=== PATIENT | male | born 1985 | race Caucasian/White ===

== ENCOUNTER 2022-06-07 16:04 | Emergency (ER) | payer SELFPAY ==
[2022-06-07] VITALS (32 sets, daily range): BP systolic 134–168; BP diastolic 73–105; PULSE 72–92; RESP 13–25; TEMP 36.6; O2SAT 95–98; BMI 38.7
--- NOTE | 2022-06-07 16:07 | DI.CT.S_ITS ---
PROCEDURE: CT STROKE INDICATIONS: left side weakness TECHNIQUE: Noncontrast 4.5 mm thick angled axial sections acquired from the foramen magnum to the vertex, with coronal reformats. For radiation dose reduction, the following was used: automated exposure control, adjustment of mA and/or kV according to patient size. COMPARISON: None. FINDINGS: Image quality: Excellent. CSF spaces: Basal cisterns are patent. No extra-axial fluid collections. Ventricles are normal in size and shape. Brain: No midline shift. No intracranial masses or hemorrhage. More-white matter interface is normal. Skull and face: Calvarium and visualized facial bones are intact, without suspicious lesions. Sinuses: Visualized sinuses and mastoids are clear. IMPRESSION: No acute intracranial finding. Results or discussed with Dr. Ken Wagner at 1614 on 06/07/2020. This study fulfills neurological imaging criteria for inclusion or exclusion of acute stroke therapies based on available published neurological imaging guidelines. Dictated by: Gunnar Gerard M.D. on 06/07/2022 at 16:16 Approved by: Gunnar Gerard M.D. on 06/07/2022 at 16:19
--- NOTE | 2022-06-07 16:07 | DI.CT.S_ITS ---
PROCEDURE: CT ANGIO HEAD AND NECK INDICATIONS: left side weakness TECHNIQUE: Noncontrast images were performed earlier in the day and not repeated. After the administration of intravenous contrast, 1 mm thick sections acquired from the aortic arch through the [place] of [place]. Post-contrast 4.5 mm thick sections then re-acquired from the foramen magnum to the vertex. 3-dimensional hdplibs-qpmncgypg-ujtlabibpg (MIP) and/or volume rendering reformats were acquired of the central intracranial vasculature and neck separately. For radiation dose reduction, the following was used: automated exposure control, adjustment of mA and/or kV according to patient size. COMPARISON: [facility], CT, CT STROKE, 06/07/2022, 16:14. FINDINGS: Image quality: Limited by bolus timing, with venous contamination. Poor skin at BRAIN: CSF spaces: Ventricles are normal in size and shape. Basal cisterns are patent. No extra-axial fluid collections. Brain: No midline shift. No intracranial bleeds or masses. More-white matter interface appears intact. Skull and face: Calvarium and facial bones appear intact, without suspicious lesions. Orbits appear normal. Sinuses: Sinuses and mastoids are clear. HEAD CT ANGIOGRAPHY: Anterior circulation: Intracranial internal carotid arteries are normal in size and flow. The flow within the paired anterior cerebral arteries is normal and symmetric. The flow within the middle cerebral arteries is normal and symmetric. The anterior communicating artery is seen. No aneurysms are seen. Posterior circulation: Visualized portions of the vertebral arteries demonstrate normal caliber, and join to form a normal appearing basilar artery. Flow within the posterior cerebral arteries is normal and symmetric. No aneurysms are seen. NECK CT ANGIOGRAPHY: Carotid system: The great vessels demonstrate a conventional anatomy as they arise from the aortic arch. The origins of the common carotid arteries appear patent. The common carotid arteries demonstrate normal caliber and courses. The bifurcation regions are both widely patent. The internal carotid arteries demonstrate normal calibers and courses. Posterior circulation: The origins of the vertebral arteries both appear widely patent. The more superior extracranial portions of both vertebral arteries also demonstrate normal courses and calibers. They join to form a normal appearing basilar artery. Soft tissues: Visualized neck soft tissues demonstrate no suspicious abnormalities. Bones: No suspicious bony lesions. Visualized cervical spine appears normally aligned. Partially bridging anterior osteophytes are seen at C6-C7. IMPRESSION: No significant intracranial arterial abnormality is seen. Within the arteries of the neck, no hemodynamically significant stenosis can be seen. No findings of dissection are seen. If there is strong clinical suspicion for an acute stroke, please consider a brain MRI for further evaluation, as it is more sensitive (assuming that there is no contraindication to MRI). Any quantitative measurements of stenosis were performed using NASCET criteria. Dictated by: Ron Roberts M.D. on 06/07/2022 at 16:41 Approved by: Ron Roberts M.D. on 06/07/2022 at 16:44
--- NOTE | 2022-06-07 16:08 | ED_ITS ---
HPI - Neuro Symptoms/Deficit General Chief Complaint: Neuro Symptoms/Deficit Stated Complaint: Stroke Time Seen by Provider: 06/07/22 16:06 History of Present Illness HPI Narrative: Code stroke activated 4 p.m.. Last well known 3:50 p.m.. 10 minutes prior to arrival. Patient with . noticed unable to speak and unable to walk. Has slurred speech left facial droop and left-sided weakness. No prior history of heart attack strokes or diabetes. No recent illness. Fast exam positive for facial droop slurred speech and left-sided weakness. Patient on way to CT scan now. Related Data Allergies Allergy/AdvReac Type Severity Reaction Status Date / Time No Known Drug Allergies Allergy Verified 06/07/22 16:09 Review of Systems Review of Systems Narrative: GENERAL: Denies chills, fatigue, malaise, fever, sweats. HEENT: Denies sinus pain, ear pain, sore throat RESPIRATORY: Denies dyspnea, cough CARDIOVASCULAR: Denies chest pain, palpitations GASTROINTESTINAL: Denies nausea, vomiting, abdominal pain : Denies dysuria, frequency, hematuria MUSCULOSKELETAL: denies muscle or bony pain SKIN: Denies rash, skin lesions NEUROLOGIC: Positive weakness, numbness/facial droop/slurred speech ROS Unobtainable: All systems reviewed & are unremarkable except as noted in HPI and below Patient History Social History Smoking Status: Current every day smoker Exam Narrative Exam Narrative: GENERAL: in no distress, not toxic not dyspneic HEAD: Normocephalic. EYES: Pupils equal round No scleral icterus. ENT: Mucous membranes moist. NECK: Trachea midline. CARDIOVASCULAR: Regular rate and rhythm without murmurs RESPIRATORY: Clear to auscultation. Breath sounds equal bilaterally. No wheezes, rales, or rhonchi. GASTROINTESTINAL: Abdomen soft, non-tender EXTREMITIES: No gross deformities. BACK: No flank tenderness. NEURO: AOx4. On examination there is slurred speech and left facial droop with preservation of the forehead. Weakness on the left upper extremity able to lift arm off the bed. Unable to fur nailer with left hand. Left leg off the bed but quickly drops down SKIN: Warm and dry PSYCH: is anxious, is cooperative Initial Vital Signs Initial Vital Signs: Vital Signs Temperature 98 F 06/07/22 16:06 Pulse Rate 88 06/07/22 16:06 Respiratory Rate 18 06/07/22 16:06 Blood Pressure 163/95 H 06/07/22 16:06 Pulse Oximetry 96 06/07/22 16:06 Oxygen Delivery Method 06/07/22 16:06 Scores NIH Stroke Scale Level of Conciousness: Alert, keenly responsive Ask month/age: Answers both questions correctly. Open/close eyes, close hand: Performs both tasks correctly Best gaze horizontal: Normal Visual palacios: No visual loss Facial palsy: Minor paralysis, flattened nasolabial fold, asymmetry on smiling Left arm drift: No movement Right arm drift: No drift for full 10 sec Left leg drift: Some effort against gravity, cannot maintain, drifts down to bed Right leg drift: No drift for full 5 sec Limb ataxia: Present in one limb Sensory on face/arms/legs: Mild to moderate sensory loss, can tell touch Best language: Mild to moderate, slurs some words Dysarthria: Mild to mod,some slurring Extinction or inattention: Visual, tactile, auditory, spacial or personal inattention to stimuli Total NIH Stroke scale score: 12 Course Course Course Narrative: 4:19 p.m.. Spoke with radiologist, CT brain without contrast no acute process, no bleed Decision to Admit Date: 06/07/22 Decision to Admit time: 16:12 Orders Ordered: Discontinued Medications Alteplase, Recombinant (Activase) 9 mg in 9 mls @ 540 mls/hr IV NOW ONE Stop: 06/07/22 16:38 Last Infusion: 06/07/22 16:41 Dose: 0 mls/hr Documented By: Admin: 06/07/22 16:39 Dose: 540 mls/hr Documented By: IFRAH Alteplase, Recombinant (Activase) 81 mg in 81 mls @ 81 mls/hr IV NOW ONE Stop: 06/07/22 17:36 Last Infusion: 06/07/22 17:38 Dose: 0 mls/hr Documented By: Admin: 06/07/22 16:41 Dose: 81 mls/hr Documented By: IFRAH Reevaluation(s) Reevaluation #1: Spoke with patient and regarding risks and benefits of tPA. At this time CT scan of the head shows no signs of bleed but patient is symptomatic. They do agree with tPA, risk of /bleed anywhere in the body as well as brain/worsening symptoms reviewed with them benefits of reversing symptoms reviewed with them as well. They do desire having tPA Reevaluation #2: Patient did receive tPA. Is improving with left arm movement and able to raise his arm and very soft fur nailer. Improved with left leg raise as well. Time: 16:52 Reevaluation #3: Symptoms have nearly resolved. Strong left fur nailer and able to raise his left arm. No facial droop. No leg weakness. Time: 17:56 Consultations Consultation #1: Spoke with [facility] tele stroke, agree with giving tPA. Spoke w tory Baker, she will teleconference in robotically Time: 16:28 Consultation #2: Spoke with Dr. Baker, she would like to transfer patient down to [facility]. She will work on getting patient transferred. In the meantime, patient will be going back to CT scan for angiogram, she will look for the results online. Time: 16:56 Consultation #3: Spoke with Dr. Baker, she would like patient to be transferred to [facility] Emergency Department, she will give report to the ER attending Time: 17:56 Vital Signs Vital signs: Vital Signs - 8 hr 06/07/22 16:06 06/07/22 16:22 06/07/22 16:26 Temperature 98 F Pulse Rate 88 83 82 Respiratory Rate 18 17 17 Blood Pressure 163/95 H Pulse Oximetry 96 98 97 Oxygen Delivery Method Room Air 06/07/22 16:27 06/07/22 16:27 06/07/22 16:30 Temperature Pulse Rate 82 86 Respiratory Rate 20 25 H Blood Pressure 168/81 H Pulse Oximetry 98 98 Oxygen Delivery Method 06/07/22 16:35 06/07/22 16:35 06/07/22 16:40 Temperature Pulse Rate 80 Respiratory Rate 21 Blood Pressure 163/86 H 160/85 H Pulse Oximetry 97 Oxygen Delivery Method 06/07/22 16:40 06/07/22 16:45 06/07/22 16:45 Temperature Pulse Rate 82 79 Respiratory Rate 19 19 Blood Pressure 152/85 H Pulse Oximetry 98 97 Oxygen Delivery Method 06/07/22 16:50 06/07/22 16:50 06/07/22 16:55 Temperature Pulse Rate 82 Respiratory Rate 20 Blood Pressure 157/91 H 140/84 Pulse Oximetry 97 Oxygen Delivery Method 06/07/22 16:55 06/07/22 17:00 06/07/22 17:00 Temperature Pulse Rate 78 77 Respiratory Rate 21 14 Blood Pressure 139/84 Pulse Oximetry 97 96 Oxygen Delivery Method 06/07/22 17:05 06/07/22 17:05 06/07/22 17:07 Temperature Pulse Rate 77 Respiratory Rate 17 Blood Pressure 146/88 H 157/105 H Pulse Oximetry 96 Oxygen Delivery Method 06/07/22 17:07 06/07/22 17:08 06/07/22 17:08 Temperature Pulse Rate 78 77 Respiratory Rate 19 14 Blood Pressure 145/85 H Pulse Oximetry 96 96 Oxygen Delivery Method 06/07/22 17:10 06/07/22 17:10 06/07/22 17:15 Temperature Pulse Rate 76 Respiratory Rate 15 Blood Pressure 138/89 134/85 Pulse Oximetry 96 Oxygen Delivery Method 06/07/22 17:15 06/07/22 17:20 06/07/22 17:20 Temperature Pulse Rate 78 92 H Respiratory Rate 20 18 Blood Pressure 144/85 H Pulse Oximetry 97 97 Oxygen Delivery Method 06/07/22 17:24 06/07/22 17:24 06/07/22 17:25 Temperature Pulse Rate 78 Respiratory Rate 14 Blood Pressure 145/91 H 137/90 Pulse Oximetry 96 Oxygen Delivery Method 06/07/22 17:25 06/07/22 17:30 06/07/22 17:30 Temperature Pulse Rate 79 75 Respiratory Rate 13 16 Blood Pressure 145/96 H Pulse Oximetry 96 95 Oxygen Delivery Method 06/07/22 17:35 06/07/22 17:35 06/07/22 17:50 Temperature Pulse Rate 78 81 Respiratory Rate 21 16 Blood Pressure 136/84 143/76 H Pulse Oximetry 96 98 Oxygen Delivery Method 06/07/22 17:40 06/07/22 17:40 06/07/22 17:45 Temperature Pulse Rate 79 Respiratory Rate 20 Blood Pressure 145/86 H 159/87 H Pulse Oximetry 96 Oxygen Delivery Method 06/07/22 17:45 Temperature Pulse Rate 77 Respiratory Rate 16 Blood Pressure Pulse Oximetry 96 Oxygen Delivery Method MDM - Neuro Symptoms/Deficit Differential Diagnosis Differential diagnosis: Likely cerebrovascular accident and transient cerebral ischemia Lab Data Result diagrams: 06/07/22 16:20 06/07/22 16:20 Labs: Lab Results 06/07/22 06/07/22 06/07/22 Range/Units 16:20 16:20 16:20 WBC 11.9 H (4.5-11.0) X10^3/uL RBC 4.60 (4.5-5.9) X10^6/uL Hgb 14.0 (13.5-17.5) g/dL Hct 41.0 (41-53) % MCV 89.2 (80-100) fL MCH 30.4 (26-34) PG MCHC 34.1 (30-36) % RDW 13.6 (11.6-14.8) % Plt Count 291 (150-400) X10^3/uL Neut % (Auto) 50.8 (50-75) % Lymph % (Auto) 34.5 (25-40) % [place] % (Auto) 9.4 (3-14) % Eos % (Auto) 3.8 (2-4) % Baso % (Auto) 1.5 (0-2) % Neut # (Auto) 6000 (1663-5331) /uL Lymph # (Auto) 4100 (4767-1151) /uL [place] # (Auto) 1100 H (0-900) /uL Eos # (Auto) 500 H (0-450) /uL Baso # (Auto) 200 H (0-100) /uL PT 10.9 (10.1-12.7) SECONDS INR 1.0 (0.9-1.3) APTT 30 (26-36) SECONDS Sodium 139 (137-145) mmol/L Potassium 4.2 (3.4-5.1) mmol/L Chloride 102 (98-107) mmol/L Carbon Dioxide 28 (22-32) mmol/L BUN 16 (9-20) mg/dL Creatinine 0.77 (0.66-1.25) mg/dL Estimated GFR > 60 (>60) mL/min BUN/Creatinine Ratio 20.8 (6-22) Glucose 109 H (70-100) mg/dL Calcium 8.9 (8.4-10.2) mg/dL Total Bilirubin 0.2 (0.2-1.3) mg/dL AST 31 (17-59) IU/L ALT 31 (<50) IU/L Alkaline Phosphatase 69 (38-126) U/L Total Creatine Kinase 225 H (55-170) U/L CK-MB (CK-2) 0.82 (<2.37) ng/mL CK-MB (CK-2) Rel Index 0.4 L (1.5-5.0) % Troponin I < 0.012 (0.01-0.034) ng/mL Total Protein 7.6 (6.3-8.2) g/dL Albumin 4.1 (3.5-5.0) g/dL Globulin 3.5 (1.7-4.1) g/dL Albumin/Globulin Ratio 1.2 (1.0-2.8) SARS-CoV-2 (PCR) (Negative) 06/07/22 Range/Units 17:40 WBC (4.5-11.0) X10^3/uL RBC (4.5-5.9) X10^6/uL Hgb (13.5-17.5) g/dL Hct (41-53) % MCV (80-100) fL MCH (26-34) PG MCHC (30-36) % RDW (11.6-14.8) % Plt Count (150-400) X10^3/uL Neut % (Auto) (50-75) % Lymph % (Auto) (25-40) % [place] % (Auto) (3-14) % Eos % (Auto) (2-4) % Baso % (Auto) (0-2) % Neut # (Auto) (1304-7089) /uL Lymph # (Auto) (2739-2096) /uL [place] # (Auto) (0-900) /uL Eos # (Auto) (0-450) /uL Baso # (Auto) (0-100) /uL PT (10.1-12.7) SECONDS INR (0.9-1.3) APTT (26-36) SECONDS Sodium (137-145) mmol/L Potassium (3.4-5.1) mmol/L Chloride (98-107) mmol/L Carbon Dioxide (22-32) mmol/L BUN (9-20) mg/dL Creatinine (0.66-1.25) mg/dL Estimated GFR (>60) mL/min BUN/Creatinine Ratio (6-22) Glucose (70-100) mg/dL Calcium (8.4-10.2) mg/dL Total Bilirubin (0.2-1.3) mg/dL AST (17-59) IU/L ALT (<50) IU/L Alkaline Phosphatase (38-126) U/L Total Creatine Kinase (55-170) U/L CK-MB (CK-2) (<2.37) ng/mL CK-MB (CK-2) Rel Index (1.5-5.0) % Troponin I (0.01-0.034) ng/mL Total Protein (6.3-8.2) g/dL Albumin (3.5-5.0) g/dL Globulin (1.7-4.1) g/dL Albumin/Globulin Ratio (1.0-2.8) SARS-CoV-2 (PCR) Negative (Negative) Point of Care Testing Glucose POC [address] scan - head: Radiologist's Impression: [address] [address] [address] Scan Report Signed Patient: Santiago Gamble MR#: [id number] : 1985 Acct:[id number] Age/Sex: 37 / M Date of Service: 06/07/22 Loc: ED Accession Number: [id number] ?? Procedure: CT Stroke Ordering Provider: Ken Wagner MD PROCEDURE:? CT STROKE ? INDICATIONS:? left side weakness ? TECHNIQUE:? Noncontrast 4.5 mm thick angled axial sections acquired from the foramen magnum to the vertex, with coronal reformats.? For radiation dose reduction, the following was used:? automated exposure control, adjustment of mA and/or kV according to patient size.? ? COMPARISON:? None. ? FINDINGS:? Image quality:? Excellent.? ? CSF spaces:? Basal cisterns are patent.? No extra-axial fluid collections.? Scot tricles are normal in size and shape.? ? Brain:? No midline shift.? No intracranial masses or hemorrhage.? More-white matter interface is normal.? ? Skull and face:? Calvarium and visualized facial bones are intact, without suspicious lesions.? ? Sinuses:? Visualized sinuses and mastoids are clear.? ? IMPRESSION:? No acute intracranial finding.? Results or discussed with Dr. Ken Wagner at 1614 on 06/07/2020. ? This study fulfills neurological imaging criteria for inclusion or exclusion of acute stroke therapies based on available published neurological imaging guidelines.? ? ? Dictated by: Gunnar Gerard M.D. on 06/07/2022 at 16:16 ? ? Approved by: Gunnar Gerard M.D. on 06/07/2022 at 16:19 ? CTA - brain/neck: Radiologist's Impression: [address] [address] [address] Scan Report Signed Patient: Santiago Gamble MR#: [id number] : 1985 Acct:[id number] Age/Sex: 37 / M Date of Service: 06/07/22 Loc: ED Accession Number: [id number] ?? Procedure: CT angio head and neck Ordering Provider: Ken Wagner MD PROCEDURE:? CT ANGIO HEAD AND NECK ? INDICATIONS:? left side weakness ? TECHNIQUE:? Noncontrast images were performed earlier in the day and not repeated.? ? After the administration of intravenous contrast, 1 mm thick sections acquired from the aortic arch through the [place] of [place].? Post-contrast 4.5 mm thick sections then re- acquired from the foramen magnum to the vertex.? 3-dimensional vxfrabd-wssurjbsf-aiknuxydae (MIP) and/or volume rendering reformats were acquired of the central intracranial vasculature and neck separately. For radiation dose reduction, the following was used:? automated exposure control, adjustment of mA and/or kV according to patient size.? ? COMPARISON:? [facility], CT, CT STROKE, 06/07/2022, 16:14. ? FINDINGS:? Image quality:? Limited by bolus timing, with venous contamination.? Poor skin at ? BRAIN:? CSF spaces:? Ventricles are normal in size and shape.? Basal cisterns are patent.? No extra-axial fluid collections.? ? Brain:? No midline shift.? No intracranial bleeds or masses.? More-white matter interface appears intact.? ? Skull and face:? Calvarium and facial bones appear intact, without suspicious lesions.? Orbits appear normal.? ? Sinuses:? Sinuses and mastoids are clear.? ? HEAD CT ANGIOGRAPHY:? Anterior circulation:? Intracranial internal carotid arteries are normal in size and flow.? The flow within the paired anterior cerebral arteries is normal and symmetric.? The flow within the middle cerebral arteries is normal and symmetric.? The anterior communicating artery is seen.? No aneurysms are seen.? ? Posterior circulation:? Visualized portions of the vertebral arteries demonstrate normal caliber, and join to form a normal appearing basilar artery.? Flow within the posterior cerebral arteries is normal and symmetric.? No aneurysms are seen.? ? NECK CT ANGIOGRAPHY:? Carotid system:? The great vessels demonstrate a conventional anatomy as they arise from the aortic arch.? The origins of the common carotid arteries appear patent.? The common carotid arteries demonstrate normal caliber and courses.? The bifurcation regions are both widely patent.? The internal carotid arteries demonstrate normal calibers and courses.? ? Posterior circulation:? The origins of the vertebral arteries both appear widely patent.? The more superior extracranial portions of both vertebral arteries also demonstrate normal courses and calibers.? They join to form a normal appearing basilar artery.? ? Soft tissues:? Visualized neck soft tissues demonstrate no suspicious abnormalities.? ? Bones:? No suspicious bony lesions.? Visualized cervical spine appears normally aligned.? Partially bridging anterior osteophytes are seen at C6-C7. ? ? ? IMPRESSION:? No significant intracranial arterial abnormality is seen.? ? Within the arteries of the neck, no hemodynamically significant stenosis can be seen. ? No findings of dissection are seen. ? If there is strong clinical suspicion for an acute stroke, please consider a bra in MRI for further evaluation, as it is more sensitive (assuming that there is no contraindication to MRI). ? Any quantitative measurements of stenosis were performed using NASCET criteria.? ? ? Dictated by: Ron Roberts M.D. on 06/07/2022 at 16:41 ? ? Approved by: Ron Roberts M.D. on 06/07/2022 at 16:44 ? ECG Data Interpretation: Normal sinus rhythm rate [address] elevation or depression MDM Narrative Medical decision making narrative: Appropriate for transfer, patient will need ICU and neurology services. We do not have neurology services here. Critical Care Time Critical Care Time Attestation: Critical Care Time 35 minutes: Critical care time is separate from other billable procedures. This critical care time includes consultation with family and other consulting doctors, review of records, and interpretation of data from labs, EKGs, imaging, etc. Discharge Plan Departure Patient Disposition: [facility] Clinical Impression: Cerebrovascular accident
--- NOTE | 2022-06-07 16:30 | PC.NURSE ---
telestroke neurologist on with patient completing exam @ 1630 tpa consent completed @ 1638 tpa bolus dose 9 mg @ 1639 tpa infusion 81 mg over 1 hr @1640 tpa infusion completed @ 1748
--- NOTE | 2022-06-07 16:34 | RT ---
Responded to code stroke, airway patent and no distress noted. Pt on room air
[2022-06-07 16:35] LABS: Add Manual Diff / Slide Review NO; Basophils Absolute Auto 200 /uL (0-100); Basophils Percent Auto 1.5 % (0-2); Eosinophils Absolute Auto 500 /uL (0-450); Eosinophils Percent Auto 3.8 % (2-4); Lymphocytes Absolute Auto 4100 /uL (1100-4500); Lymphocytes Percent Auto 34.5 % (25-40); Mean Corpuscular HGB Conc 34.1 % (30-36); Mean Corpuscular Hemoglobin 30.4 PG (26-34); Mean Corpuscular Volume 89.2 fL (80-100); Monocytes Absolute Auto 1100 /uL (0-900); Monocytes Percent Auto 9.4 % (3-14); Neutrophils Absolute Auto 6000 /uL (1500-7000); Neutrophils Percent Auto 50.8 % (50-75); Platelet Count 291 X10^3/uL (150-400); Prothrombin Time 10.9 SECONDS (10.1-12.7); Red Cell Distribution Width 13.6 % (11.6-14.8); White Blood Cell Count 11.9 X10^3/uL (4.5-11.0)
[2022-06-07 16:38] LABS: PTT Partial Thromboplastin Tim 30 SECONDS (26-36)
[2022-06-07] MEDS: ALTEPLASE 9 MG/9 ML VIAL 540 MG IV (16:39)
[2022-06-07 16:41] LABS: Alanine Aminotransferase 31 IU/L (<50); Albumin 4.1 g/dL (3.5-5.0); Albumin Globulin Ratio 1.2 (1.0-2.8); Alkaline Phosphatase 69 U/L (38-126); Aspartate Aminotransferase 31 IU/L (17-59); BUN Creatinine Ratio 20.8 (6-22); Bilirubin Total 0.2 mg/dL (0.2-1.3); Blood Urea Nitrogen 16 mg/dL (9-20); Calcium 8.9 mg/dL (8.4-10.2); Carbon Dioxide 28 mmol/L (22-32); Chloride 102 mmol/L (98-107); Creatine Kinase 225 U/L (55-170); Estimated Glomerular Filt Rate > 60 mL/min (>60); Globulin 3.5 g/dL (1.7-4.1); Glucose 109 mg/dL (70-100); HEMOLYSIS < 15 (0-50); Potassium 4.2 mmol/L (3.4-5.1); Sodium 139 mmol/L (137-145); Total Protein 7.6 g/dL (6.3-8.2)
[2022-06-07] MEDS: ALTEPLASE 81 MG/81 ML VIAL IV (16:41)
[2022-06-07 16:53] LABS: Troponin I < 0.012 ng/mL (0.01-0.034)
[2022-06-07 16:57] LABS: CKMB % Relative Index 0.4 % (1.5-5.0); Creatine Kinase MB 0.82 ng/mL (<2.37)
--- NOTE | 2022-06-07 17:00 | PC.NURSE ---
decreased sensation of touch left face/arms/leg
[2022-06-07 18:02] LABS: COVID19 -Nasal RAPID Negative (Negative)
--- NOTE | 2022-06-07 18:04 | PC.NURSE ---
left hand 4th and 5th finger and outer part of left eyelid/corner of eye/cheek tingling/numb but sense of touch equal both sides
== END 2022-06-07 19:13 | disposition short-term general hospital (02) ==
PROVIDERS: Emergency Provider Emergency Medicine
DX: I63.9 Cerebral infarction, unspecified (principal); Z20.822 Contact with and (suspected) exposure to COVID-19
CPT/HCPCS: 36415; 70450; 70496; 70498; 80053; 82550; 82553; 82962; 84484; 85025; 85610; 85730; 87635; 93005; 96365; 99285; 99291; C9803; Q3014; J2997; Q9967

== ENCOUNTER → 2022-06-20 09:37 | Outpatient (CLI) | payer SELFPAY ==
[2022-06-20 10:57] LABS: Cholesterol 274 mg/dL (140-199); HDL Cholesterol 38 mg/dL (40-60); LDL Cholesterol Calculated 184 mg/dL (<100); Triglycerides 259 mg/dL (35-150)
== END ==
PROVIDERS: PCP Family Medicine; Referring Provider Family Medicine; Visit Provider Family Medicine
DX: I63.9 Cerebral infarction, unspecified (principal)
CPT/HCPCS: 36415; 80061

== ENCOUNTER 2022-11-29 10:45 | Emergency (ER) | payer OTHER, MEDICAID, SELFPAY ==
[2022-11-29 11:22] VITALS: BP 127/80; PULSE 85; RESP 16; TEMP 36.7; O2SAT 96; BMI 38.4
--- NOTE | 2022-11-29 12:53 | ED.EXTPRO ---
HPI - Extremity Problem <Giuseppe Callejas PA-C - Last Filed: 11/29/22 19:43> General Chief complaint: Extremity Problem,Nontraumatic Stated complaint: RT leg/knee issue T-6 pain/hard time walking Time Seen by Provider: 11/29/22 12:29 Source: patient Mode of arrival: Ambulatory History of Present Illness HPI Narrative: This is a 37-year-old male presents emergency department due to right lower extremity pain and swelling onset approximately 6 days ago with the pain worsening as of yesterday. He is not recall any acute injuries to the area although he states that he was kneeling on a friend's step which she thinks may be causing the pain. The pain is primarily to the posterior calf of the right lower extremity with some redness. 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 which she thinks were varicose veins. Denies any fevers, nausea, vomiting, or any other concerning signs or symptoms. Denies any numbness. Denies any significant acute bony knee pain. Related Data Previous Rx's Medication Instructions Recorded simvastatin 40 mg tablet 40 mg PO BEDTIME high cholesterol 06/24/22 #30 tabs enoxaparin 40 mg/0.4 mL 40 mg (0.4 mL) SUBCUT DAILY 45 11/29/22 subcutaneous syringe (Lovenox) days #18 mL Allergies Allergy/AdvReac Type Severity Reaction Status Date / Time No Known Drug Allergies Allergy Verified 06/07/22 16:09 Review of Systems <Giuseppe Callejas PA-C - Last Filed: 11/29/22 19:43> Review of Systems Narrative: GENERAL: Denies chills, fatigue, malaise, fever, sweats. HEENT: Denies sinus pain, ear pain, sore throat, difficulty swallowing, dizziness. RESPIRATORY: Denies dyspnea, cough, wheezing, hemoptysis, sputum. CARDIOVASCULAR: Denies chest pain, palpitations, orthopnea, edema, GASTROINTESTINAL: Denies nausea, vomiting, abdominal pain, diarrhea, constipation, melena. : Denies dysuria, frequency, incontinence, hematuria, urinary retention. MUSCULOSKELETAL: Reports right calf pain SKIN: Reports redness to right calf NEUROLOGIC: Denies weakness, headache, numbness, change in speech, confusion, seizures, incoordination. PSYCHIATRIC: No concerning psychosocial issues. 12 point review of systems is negative except for those stated above Patient History <Giuseppe Callejas PA-C - Last Filed: 11/29/22 19:43> Medical History (Updated 11/29/22 @ 15:32 by Giuseppe Callejas PA-C) CVA (cerebral vascular accident) Surgical History (Updated 08/08/22 @ 19:05 by Chayito Urbina) Anesthesia History of knee surgery Family History (Updated 08/08/22 @ 19:06 by Chayito Urbina) Father Hypertension Mother Cancer Social History Smoking Status: Current every day smoker Smoking Status: Current every day smoker Substance Use Type: marijuana Exam <Giuseppe Callejas PA-C - Last Filed: 11/29/22 19:43> Narrative Exam Narrative: GENERAL: Well-developed patient, in mild distress. HEAD: Atraumatic. Normocephalic. EYES: Pupils equal round and reactive. Extraocular motions intact. No scleral icterus. No injection or drainage. ENT: Nose without bleeding, purulent drainage. Throat without erythema, tonsillar hypertrophy or exudate. Airway patent. NECK: Trachea midline. Non tender CARDIOVASCULAR: Regular rate and rhythm without murmurs, gallops, or rubs. RESPIRATORY: Clear to auscultation. Breath sounds equal bilaterally. No wheezes, rales, or rhonchi. GASTROINTESTINAL: Abdomen soft, non-tender, nondistended. EXTREMITIES: No edema or joint tenderness. BACK: Nontender without deformity or crepitance. No flank tenderness. NEURO: AOx3. SKIN: Large circular area of erythema to the posterior calf slightly warm to the touch, approximately 12 cm in diameter. No obvious areas of fluctuance, drainage, or openings in the skin. Patient reports edema although calves appear similar in size. Initial Vital Signs Initial Vital Signs: Vital Signs Temperature 98.1 F 11/29/22 11:22 Pulse Rate 85 11/29/22 11:22 Respiratory Rate 16 11/29/22 11:22 Blood Pressure 127/80 11/29/22 11:22 Pulse Oximetry 96 11/29/22 11:22 Oxygen Delivery Method Room Air 11/29/22 11:22 <Alena Kumar DO - Last Filed: 11/30/22 08:25> Initial Vital Signs Initial Vital Signs: Vital Signs Temperature 98.1 F 11/29/22 11:22 Pulse Rate 85 11/29/22 11:22 Respiratory Rate 16 11/29/22 11:22 Blood Pressure 127/80 11/29/22 11:22 Pulse Oximetry 96 11/29/22 11:22 Oxygen Delivery Method Room Air 11/29/22 11:22 Course <Giuseppe Callejas PA-C - Last Filed: 11/29/22 19:43> Orders Ordered: ED Orders 11/29/22 13:01 US periph venous low extrem rt Stat Vital Signs Vital signs: Vital Signs - 8 hr 11/29/22 14:55 11/29/22 15:49 Pulse Rate 74 70 Respiratory Rate 14 Blood Pressure 136/87 132/78 Pulse Oximetry 97 99 Oxygen Delivery Method Room Air Room Air <Alena Kumar DO - Last Filed: 11/30/22 08:25> Orders Ordered: ED Orders 11/29/22 13:01 US periph venous low extrem rt Stat Vital Signs Vital signs: Vital Signs - 8 hr 11/29/22 14:55 11/29/22 15:49 Pulse Rate 74 70 Respiratory Rate 14 Blood Pressure 136/87 132/78 Pulse Oximetry 97 99 Oxygen Delivery Method Room Air Room Air MDM - Extremity (Nontraumatic) <Giuseppe Callejas PA-C - Last Filed: 11/29/22 19:43> Imaging Data US - DVT: Radiologist's Impression: [place] [address] Ultrasound Report Signed Patient: Santiago Junior MR#: [id number] : 1985 Acct:[id number] Age/Sex: 37 / M Date of Service: 11/29/22 Loc: ED Accession Number: [id number] ?? Procedure: US periph venous low extrem rt Ordering Provider: Giuseppe Callejas P.A-C PROCEDURE:? US PERIPH VENOUS LOW EXTREM RT ? INDICATIONS:? Please evaluate for DVT ? TECHNIQUE:? Real-time imaging, as well as color and pulse Doppler interrogation, were performed of the lower extremity deep veins from the inguinal ligament to the popliteal fossa.? ? COMPARISON:? None. ? FINDINGS:? The common femoral, femoral and popliteal veins are normally compressible, and free of intraluminal thrombus.? Color and pulse Doppler demonstrate normal phasic intraluminal flow.? There is normal augmentation response to distal compression maneuver. ? ? Within the greater saphenous vein, there is an occlusive superficial thrombus seen at the level of the calf, without compressibility. ? ? IMPRESSION:? Superficial thrombosis seen at the level of the calf involving the greater saphenous vein. ? Negative for deep venous thrombosis. ? ? Dictated by: Ron Roberts M.D. on 11/29/2022 at 12:57 ? ? Approved by: Ron Roberts M.D. on 11/29/2022 at 12:58 ? MDM Narrative Medical decision making narrative: MDM * differential diagnosis includes but not limited to acute DVT, cellulitis, fracture, soft tissue infection, abscess * Prior records reviewed: Patient has not been here for similar complaints in the past * My lab interpretation: None obtained * My imgaing interpretation: Ultrasound showed a superficial thrombosis of the greater saphenous vein. * Clinical Decision Rules/Scores evaluated: None * Independent discussions with: None ED Course: This is a 37-year-old male presents emergency department due to acute onset right lower extremity pain with swelling. Ultrasound DVT was ordered which showed a superficial thrombus of the greater saphenous vein as noted in the report. The findings were discussed with the reading radiologist as well as the radiology tech who confirmed that the thrombus this was over 5 cm in length. Based on up-to-date this will be treated with 45 days of VTE prophylaxis. Recommend patient follow up with primary care provider. Patient states that he also has not established vascular surgeon which she saw for varicose veins I recommended he follow up with him as well. Recommended warm compress and NSAIDs for pain relief. Shared Decision Making: Discussed plan with patient who is comfortable with plan Social Considerations: None Disposition: Discharged to home Discharge Plan Departure Patient Disposition: Home Clinical Impression: Acute superficial venous thrombosis of lower extremity Activity Restrictions/Additional Instructions: Thank you for coming to the [facility] Emergency Department today. As discussed you have a clot in your right lower extremity. Please take the medication as prescribed to help treat this. Also recommended warm compresses and NSAIDs for pain relief. I also recommended follow up with the primary care provider in the vascular surgeon previously saw for further evaluation and management i if symptoms continue. I hope you feel better soon. Prescriptions: New enoxaparin [Lovenox] 40 mg/0.4 mL syringe 40 mg SUBCUT DAILY 45 Days Qty: 18 0RF No Action simvastatin 40 mg tablet 40 mg PO BEDTIME Qty: 30 2RF Referrals: Suni Mack DO [Primary Care Provider] - Stand Alone Forms: Patient Portal/API <Alena Kumar DO - Last Filed: 11/30/22 08:25> Cosign ED Attending Cosignature Attestation: I was immediately available in the department for consultation. Documentation has been reviewed.
--- NOTE | 2022-11-29 13:01 | DI.US.S_ITS ---
PROCEDURE: US PERIPH VENOUS LOW EXTREM RT INDICATIONS: Please evaluate for DVT TECHNIQUE: Real-time imaging, as well as color and pulse Doppler interrogation, were performed of the lower extremity deep veins from the inguinal ligament to the popliteal fossa. COMPARISON: None. FINDINGS: The common femoral, femoral and popliteal veins are normally compressible, and free of intraluminal thrombus. Color and pulse Doppler demonstrate normal phasic intraluminal flow. There is normal augmentation response to distal compression maneuver. Within the greater saphenous vein, there is an occlusive superficial thrombus seen at the level of the calf, without compressibility. IMPRESSION: Superficial thrombosis seen at the level of the calf involving the greater saphenous vein. Negative for deep venous thrombosis. Dictated by: Ron Roberts M.D. on 11/29/2022 at 12:57 Approved by: Ron Roberts M.D. on 11/29/2022 at 12:58
[2022-11-29 14:55] VITALS: BP 136/87; PULSE 74; O2SAT 97
[2022-11-29 15:49] VITALS: BP 132/78; PULSE 70; RESP 14; O2SAT 99
== END 2022-11-29 15:50 | disposition home or self-care (01) ==
PROVIDERS: Emergency Provider Physician Assistant Medical; PCP Family Medicine
DX: I82.811 Embolism and thrombosis of superficial veins of right lower extremity (principal)
CPT/HCPCS: 93971; 99283

== ENCOUNTER 2022-12-25 10:56 | Emergency (ER) | payer OTHER, MEDICAID, SELFPAY ==
[2022-12-25] VITALS (10 sets, daily range): BP systolic 130–157; BP diastolic 79–102; PULSE 67–89; RESP 16; TEMP 36.3; O2SAT 95–97; BMI 42.1
--- NOTE | 2022-12-25 12:02 | DI.RAD.S_ITS ---
PROCEDURE: XR RIBS RT MIN 3V W CXR 1V INDICATIONS: rib/back pain TECHNIQUE: 2 views of the right ribs were acquired, along with a single view chest. COMPARISON: None. FINDINGS: Surgical changes and devices: None. Bones and chest wall: No fractures or dislocations. No suspicious bony lesions. Overlying soft tissues appear unremarkable. Lungs and pleura: Lung volumes are low. Mild but as lobe opacities are present. No pleural effusion or pneumothorax. Mediastinum: Cardiac silhouette appears mildly enlarged, may be accentuated by low lung volumes. IMPRESSION: 1. No acute displaced rib fracture identified. 2. Low lung volumes with nonspecific bibasilar opacities, likely hypoventilatory atelectasis, aspiration or pneumonia not excludable. 3. Cardiac silhouette appears mildly enlarged, may be artifactual related to low lung volumes. Dictated by: Pelon Mccartney M.D. on 12/25/2022 at 12:41 Approved by: Pelon Mccartney M.D. on 12/25/2022 at 12:45
--- NOTE | 2022-12-25 16:19 | PC.NURSE ---
This nurse attempted to collect swab for respiratory. The patient declined to have swab taken. Staff and Visitors are following droplet precautions.
[2022-12-25 16:21] LABS: Add Manual Diff / Slide Review NO; Basophils Absolute Auto 100 /uL (0-100); Basophils Percent Auto 0.8 % (0-2); Eosinophils Absolute Auto 300 /uL (0-450); Eosinophils Percent Auto 2.5 % (2-4); Hematocrit 44.7 % (41-53); Hemoglobin 15.3 g/dL (13.5-17.5); Lymphocytes Absolute Auto 4000 /uL (1100-4500); Lymphocytes Percent Auto 31.5 % (25-40); Mean Corpuscular HGB Conc 34.4 % (30-36); Mean Corpuscular Hemoglobin 30.5 PG (26-34); Mean Corpuscular Volume 88.8 fL (80-100); Monocytes Absolute Auto 900 /uL (0-900); Neutrophils Absolute Auto 7400 /uL (1500-7000); Neutrophils Percent Auto 58.2 % (50-75); Platelet Count 324 X10^3/uL (150-400); Red Blood Cell Count 5.03 X10^6/uL (4.5-5.9); Red Cell Distribution Width 13.9 % (11.6-14.8); White Blood Cell Count 12.7 X10^3/uL (4.5-11.0)
[2022-12-25 16:31] LABS: Alanine Aminotransferase 41 IU/L (<50); Albumin 4.4 g/dL (3.5-5.0); Albumin Globulin Ratio 1.2 (1.0-2.8); Alkaline Phosphatase 70 U/L (38-126); Aspartate Aminotransferase 28 IU/L (17-59); BUN Creatinine Ratio 15.6 (6-22); Bilirubin Total 0.4 mg/dL (0.2-1.3); Blood Urea Nitrogen 12 mg/dL (9-20); Calcium 9.1 mg/dL (8.4-10.2); Carbon Dioxide 30 mmol/L (22-32); Chloride 101 mmol/L (98-107); Estimated Glomerular Filt Rate > 60 mL/min (>60); Globulin 3.7 g/dL (1.7-4.1); Glucose 124 mg/dL (70-100); HEMOLYSIS < 15 (0-50); Potassium 3.9 mmol/L (3.4-5.1); Sodium 137 mmol/L (137-145); Total Protein 8.1 g/dL (6.3-8.2)
[2022-12-25 16:32] LABS: Lactate (Lactic Acid) 1.6 mmol/L (0.7-2.1)
[2022-12-25 16:48] LABS: Procalcitonin 0.04 ng/mL (<0.5)
--- NOTE | 2022-12-25 17:00 | DI.US.S_ITS ---
PROCEDURE: US ABDOMEN LIMITED INDICATIONS: RIGHT UPPER QUADRANT PAIN TECHNIQUE: Real-time focused scanning was performed of the abdomen, with image documentation. COMPARISON: None. FINDINGS: The liver demonstrates enlarged size. The liver demonstrates generalized moderately increased echogenicity. This decreases ultrasound sensitivity for detection of hepatic masses. No findings of gallstones or sludge are seen. The gallbladder wall is not thickened, measuring 3 mm or less. No specific pericholecystic fluid is seen. The sonographic Sellers sign is negative. The biliary tree is not well seen. The pancreas is not well seen. No free fluid is seen. This study is limited by body habitus. IMPRESSION: Highly limited study demonstrating no significant gallbladder abnormality. The biliary tree is not well seen. Enlarged, fatty liver. Dictated by: Ron Roberts M.D. on 12/25/2022 at 17:12 Approved by: Ron Roberts M.D. on 12/25/2022 at 17:13
[2022-12-25] MEDS: LIDOCAINE PATCH 1 EACH ADH..PATCH TOP (19:25)
[2022-12-25] MEDS: IBUPROFEN 400 MG TABLET 800 MG PO (19:26)
--- NOTE | 2022-12-31 20:34 | ED_ITS ---
HPI - Back Pain/Injury <Radu Allen PA-C - Last Filed: 12/31/22 20:44> General Chief Complaint: Back Pain/Injury Stated Complaint: RT side hurts from ribs down T-5 Time Seen by Provider: 12/25/22 16:16 History of Present Illness HPI Narrative: 37-year-old male with past medical history CVA, venous thromboembolism, hyperlipidemia presents to the ED with 6 days of right-sided rib and flank pain. Patient states that he was diagnosed with a DVT a few weeks ago, has been self administering Lovenox injections daily for it. Patient states that 6 days ago, as soon as he injected himself in the abdomen, he felt a pop in his right ribs and right flank. Patient states that it has been painful since then. Patient denies fever, chills, chest pain, shortness of breath, nausea, vomiting, dysuria, lightheadedness, dizziness, syncope. Patient denies any trauma Related Data Previous Rx's Medication Instructions Recorded simvastatin 40 mg tablet 40 mg PO BEDTIME high cholesterol 06/24/22 #30 tabs enoxaparin 40 mg/0.4 mL 40 mg (0.4 mL) SUBCUT DAILY 45 11/29/22 subcutaneous syringe (Lovenox) days #18 mL Allergies Allergy/AdvReac Type Severity Reaction Status Date / Time No Known Drug Allergies Allergy Verified 12/25/22 08:56 Review of Systems <Radu Allen PA-C - Last Filed: 12/31/22 20:44> Review of Systems ROS Unobtainable: All systems reviewed & are unremarkable except as noted in HPI and below Constitutional Constitutional: Denies chills, Denies fatigue, Denies fever(s), Denies frequent falls, Denies lethargy and Denies weakness Eyes Eyes: Denies change in vision, Denies eye discharge, Denies irritation and Denies loss of vision ENT Ears, Nose, Mouth, and Throat: Denies change in voice, Denies dizziness, Denies neck pain, Denies sore throat and Denies throat swelling Cardiovascular Cardiovascular: Denies chest pain, Denies irregular heart rhythm, Denies lightheadedness, Denies palpitations, Denies dyspnea, Denies dyspnea on exertion and Denies orthopnea Respiratory Respiratory: Denies cough, Denies dyspnea, Denies dyspnea on exertion and Denies wheezing Comments: Right Flank pain Gastrointestinal Gastrointestinal: Denies abdominal pain, Denies change in bowel habits, Denies diarrhea, Denies nausea and Denies vomiting Genitourinary Genitourinary: Denies hematuria, Denies flank pain, Denies urinary incontinence and Denies urinary urgency Musculoskeletal Musculoskeletal: Denies back pain, Denies muscle weakness, Denies neck pain, Denies numbness and Denies tingling Comments: Right Rib pain Integumentary/Breasts Skin/Breast: Denies pruritus, Denies erythema, Denies rash and Denies wounds Neurologic Neurologic: Denies behavioral changes, Denies confusion, Denies dizziness, Denies frequent falls, Denies loss of vision, Denies numbness, Denies tingling and Denies weakness Psychiatric Psychiatric: Denies anxiety, Denies behavioral changes, Denies confusion, Denies depression, Denies homicidal ideation and Denies suicidal ideation Endocrine Endocrine: Denies fatigue, Denies flushing and Denies palpitations Hematologic/Lymphatic Hematologic/Lymphatic: Denies easy bruising Allergic/Immunologic Allergic/Immunologic: Denies urticaria, Denies throat swelling and Denies wheezing Patient History <Radu Allen PA-C - Last Filed: 12/31/22 20:44> Medical History CVA (cerebral vascular accident) Surgical History Anesthesia History of knee surgery Family History Father Hypertension Mother Cancer Social History Smoking Status: Current every day smoker Smoking Status: Current every day smoker tobacco type: cigarettes alcohol intake frequency: holidays/special occasions only Substance Use Type: marijuana Exam <Radu Allen PA-C - Last Filed: 12/31/22 20:44> Narrative Exam Narrative: Const General:?cooperative, healthy appearing and comfortable [facility] Head:?normal to inspection Ears:?hearing grossly normal bilaterally Nose:?external nose normal Face and sinus:?normal facial exam and sinuses nontender Mouth:?oral mucosae normal Throat:?posterior oropharynx normal Eyes General:?appearance normal, both eyes and all related structures Neck Neck:?normal visual inspection and no lymphadenopathy noted Resp Effort & Inspection:?normal respiratory effort Auscultation:?clear to auscultation bilaterally Cardio Rate:?regular rate Rhythm:?regular rhythm GI Abdomen is soft, nondistended. Abdomen is somewhat tender to palpation in the right upper quadrant. There is no CVA tenderness. Neuro General:?patient alert, patient awake and patient oriented x3 Initial Vital Signs Initial Vital Signs: Vital Signs Temperature 97.4 F L 12/25/22 11:12 Pulse Rate 89 12/25/22 11:12 Respiratory Rate 16 12/25/22 11:12 Blood Pressure 148/102 H 12/25/22 11:12 Pulse Oximetry 97 12/25/22 11:12 Oxygen Delivery Method Room Air 12/25/22 11:12 <Ken Wagner MD - Last Filed: 01/07/23 12:13> Initial Vital Signs Initial Vital Signs: Vital Signs Temperature 97.4 F L 12/25/22 11:12 Pulse Rate 89 12/25/22 11:12 Respiratory Rate 16 12/25/22 11:12 Blood Pressure 148/102 H 12/25/22 11:12 Pulse Oximetry 97 12/25/22 11:12 Oxygen Delivery Method Room Air 12/25/22 11:12 Course <Radu Allen PA-C - Last Filed: 12/31/22 20:44> Orders Ordered: Discontinued Medications Ibuprofen (Ibuprofen 400 Mg Tablet) 800 mg PO NOW ONE Stop: 12/25/22 19:10 Last Admin: 12/25/22 19:26 Dose: 800 mg Documented By: MATI Lidocaine (Lidocaine Patch 1 Each Adh..Patch) 1 each TOP NOW ONE Stop: 12/25/22 19:09 Last Admin: 12/25/22 19:25 Dose: 1 each Documented By: MATI <Ken Wagner MD - Last Filed: 01/07/23 12:13> Orders Ordered: Discontinued Medications Ibuprofen (Ibuprofen 400 Mg Tablet) 800 mg PO NOW ONE Stop: 12/25/22 19:10 Last Admin: 12/25/22 19:26 Dose: 800 mg Documented By: MATI Lidocaine (Lidocaine Patch 1 Each Adh..Patch) 1 each TOP NOW ONE Stop: 12/25/22 19:09 Last Admin: 12/25/22 19:25 Dose: 1 each Documented By: MATI MDM - Back Pain/Injury <Radu Allen PA-C - Last Filed: 12/31/22 20:44> Lab Data 12/25/22 16:05 12/25/22 16:05 Labs: Lab Results 12/25/22 12/25/22 12/25/22 Range/Units 16:05 16:05 16:05 WBC 12.7 H (4.5-11.0) X10^3/uL RBC 5.03 (4.5-5.9) X10^6/uL Hgb 15.3 (13.5-17.5) g/dL Hct 44.7 (41-53) % MCV 88.8 (80-100) fL MCH 30.5 (26-34) PG MCHC 34.4 (30-36) % RDW 13.9 (11.6-14.8) % Plt Count 324 (150-400) X10^3/uL Neut % (Auto) 58.2 (50-75) % Lymph % (Auto) 31.5 (25-40) % [place] % (Auto) 7.0 (3-14) % Eos % (Auto) 2.5 (2-4) % Baso % (Auto) 0.8 (0-2) % Neut # (Auto) 7400 H (7424-1668) /uL Lymph # (Auto) 4000 (1407-1028) /uL [place] # (Auto) 900 (0-900) /uL Eos # (Auto) 300 (0-450) /uL Baso # (Auto) 100 (0-100) /uL Sodium 137 (137-145) mmol/L Potassium 3.9 (3.4-5.1) mmol/L Chloride 101 (98-107) mmol/L Carbon Dioxide 30 (22-32) mmol/L BUN 12 (9-20) mg/dL Creatinine 0.77 (0.66-1.25) mg/dL Estimated GFR > 60 (>60) mL/min BUN/Creatinine Ratio 15.6 (6-22) Glucose 124 H (70-100) mg/dL Lactate 1.6 (0.7-2.1) mmol/L Calcium 9.1 (8.4-10.2) mg/dL Total Bilirubin 0.4 (0.2-1.3) mg/dL AST 28 (17-59) IU/L ALT 41 (<50) IU/L Alkaline Phosphatase 70 (38-126) U/L Total Protein 8.1 (6.3-8.2) g/dL Albumin 4.4 (3.5-5.0) g/dL Globulin 3.7 (1.7-4.1) g/dL Albumin/Globulin Ratio 1.2 (1.0-2.8) Procalcitonin 0.04 (<0.5) ng/mL MDM Narrative Medical decision making narrative: 37-year-old male with past medical history CVA, venous thromboembolism, hyperlipidemia presents to the ED with 6 days of right-sided rib and flank pain. Concern for musculoskeletal sprain/strain versus fracture/dislocation versus gallbladder disease versus other intra-abdominal pathology versus other. Given physical exam, will obtain labs, rib x-ray, ultrasound abdomen. Labs were within normal limits. No fractures or dislocations on rib x-ray. No acute findings on ultrasound. Patient's symptoms likely due to a musculoskeletal strain/sprain. Supportive measures recommended. Follow-up with PCP advised. ED return precautions were discussed with patient. Patient verbalized understanding. Medical records reviewed: Yes <Ken Wagner MD - Last Filed: 01/07/23 12:13> Lab Data Labs: Lab Results 12/25/22 12/25/22 12/25/22 Range/Units 16:05 16:05 16:05 WBC 12.7 H (4.5-11.0) X10^3/uL RBC 5.03 (4.5-5.9) X10^6/uL Hgb 15.3 (13.5-17.5) g/dL Hct 44.7 (41-53) % MCV 88.8 (80-100) fL MCH 30.5 (26-34) PG MCHC 34.4 (30-36) % RDW 13.9 (11.6-14.8) % Plt Count 324 (150-400) X10^3/uL Neut % (Auto) 58.2 (50-75) % Lymph % (Auto) 31.5 (25-40) % [place] % (Auto) 7.0 (3-14) % Eos % (Auto) 2.5 (2-4) % Baso % (Auto) 0.8 (0-2) % Neut # (Auto) 7400 H (8317-9011) /uL Lymph # (Auto) 4000 (8640-8355) /uL [place] # (Auto) 900 (0-900) /uL Eos # (Auto) 300 (0-450) /uL Baso # (Auto) 100 (0-100) /uL Sodium 137 (137-145) mmol/L Potassium 3.9 (3.4-5.1) mmol/L Chloride 101 (98-107) mmol/L Carbon Dioxide 30 (22-32) mmol/L BUN 12 (9-20) mg/dL Creatinine 0.77 (0.66-1.25) mg/dL Estimated GFR > 60 (>60) mL/min BUN/Creatinine Ratio 15.6 (6-22) Glucose 124 H (70-100) mg/dL Lactate 1.6 (0.7-2.1) mmol/L Calcium 9.1 (8.4-10.2) mg/dL Total Bilirubin 0.4 (0.2-1.3) mg/dL AST 28 (17-59) IU/L ALT 41 (<50) IU/L Alkaline Phosphatase 70 (38-126) U/L Total Protein 8.1 (6.3-8.2) g/dL Albumin 4.4 (3.5-5.0) g/dL Globulin 3.7 (1.7-4.1) g/dL Albumin/Globulin Ratio 1.2 (1.0-2.8) Procalcitonin 0.04 (<0.5) ng/mL Discharge Plan Departure Patient Disposition: Home Clinical Impression: Rib pain Instructions: DI for Muscle Strain Activity Restrictions/Additional Instructions: You were evaluated in the ED today for some rib pain. Your labs, x-ray, ultrasound were normal. Your symptoms are likely due to a musculoskeletal sprain/strain. You may use lidocaine patches, heat packs, ibuprofen or Aleve for your symptoms. Please follow-up with your PCP as soon as possible. Please return to the ED if your symptoms worsen, you have trouble breathing or have chest pain. Prescriptions: No Action simvastatin 40 mg tablet 40 mg PO BEDTIME Qty: 30 2RF enoxaparin [Lovenox] 40 mg/0.4 mL syringe 40 mg SUBCUT DAILY 45 Days Qty: 18 0RF Referrals: Suni Mack DO [Primary Care Provider] - Stand Alone Forms: Patient Portal/API <Ken Wagner MD - Last Filed: 01/07/23 12:13> Cosign ED Attending Cosignature Attestation: I was immediately available in the department for consultation. This documentation has been reviewed and I agree with assessment and plan. Supervised by Ken Wagner MD
== END 2022-12-25 19:34 | disposition home or self-care (01) ==
PROVIDERS: Emergency Medicine; Emergency Provider Student in an Organized Health Care Education/Training Program; PCP Family Medicine
DX: R07.81 Pleurodynia (principal)
CPT/HCPCS: 71101; 76705; 80053; 83605; 84145; 85025; 99284

== ENCOUNTER → 2023-01-29 15:48 | Outpatient (CLI) | payer OTHER, MEDICAID, SELFPAY | PROVIDERS: PCP Family Medicine; Referring Provider Family Medicine; Visit Provider Family Medicine | DX: I82.90 Acute embolism and thrombosis of unspecified vein (principal) | CPT/HCPCS: 81240; 81241; 85300; 85303; 85306; 85379; 85598; 85610; 85613; 85670; 85730; 86146; 86147 ==

== ENCOUNTER → 2023-03-13 13:55 | Outpatient (CLI) | payer OTHER, MEDICAID, SELFPAY ==
--- NOTE | 2023-03-13 13:57 | DI.ECHO.S_ITS ---
[facility] +---------+ : : [address] : : : : [id number] : : : : Phone: [phone]---------+ Echocardiogram Report + + :Name: EMMANUEL GASCA Study Date: 03/13/2023 Height: 70 in : :[facility] ReadingLocation: Weight: 296 lb : : Gender: Male BSA: 2.5 m2 : :: 1985 Age: 38 yrs BP: 126/89 mmHg: :Reason For Study: POST EVAL STROKE : :Ordering Physician: Gypsy SHINformed By: Cherise Ordoñez : :Referring: MADI SHIN : + + Interpretation Summary Normal both left and right ventricle size and function. The ejection fraction is 60-65%. No valvular abnormality. Injection of contrast documented an interatrial shunt. Procedure: A two-dimensional transthoracic echocardiogram with color flow and Doppler was performed. The study quality was technically adequate. There is no prior echocardiogram noted for this patient. A saline contrast injection was performed to assess for cardiac shunting. The injection was performed through an intravenous line in the right arm. The patient was in sinus rhythm with heart rates between 58--81 bpm during the exam. The patient had occasional PVCs during the exam. Left Ventricle: The left ventricle is normal in size and wall thickness. The ejection fraction is estimated to be 60-65%. There are no focal wall motion abnormalities. Diastolic parameters suggest probable normal left ventricular diastolic function and normal filling pressures. Right Ventricle: The right ventricle is normal in size and function. Atria: The left atrial size is normal. Right atrial size is normal. Injection of contrast documented an interatrial shunt. Mitral Valve: The mitral valve is normal in structure and function. There is no mitral regurgitation noted. Aortic Valve: The aortic valve is trileaflet. The aortic valve opens well. There is no aortic valve stenosis. There is trace aortic regurgitation. Tricuspid Valve: The tricuspid valve is normal in structure and function. There is trace tricuspid regurgitation. The right ventricular systolic pressure is estimated to be at least 28 mmHg based on an estimated right atrial pressure of 3 mm Hg. Pulmonic Valve: The pulmonic valve leaflets are thin and pliable; valve motion is normal. There is trace pulmonic regurgitation. Great Vessels: The aortic root is normal size. The dimensions of the ascending aorta are normal. The IVC is of normal diameter and collapses greater than 50% with a sniff. This suggests a low right atrial pressure of 3 mm Hg. Pericardium/ Pleura There is no pericardial effusion. There is no pleural effusion. MMode/2D Measurements & Calculations LVIDd: 5.5 cm LVOT diam: 2.6 cm LVIDs: 3.7 cm Ao root diam: 3.7 cm FS: 33.1 % asc Aorta Diam: 3.8 cm IVSd: 0.88 cm Ao Arch Diam (Prox Trans): 2.8 cm LVPWd: 0.81 cm LV joe. diameter/BSA (cm/m^2): 2.2 LV sys. diameter/BSA (cm/m^2): 1.5 LA A2 area: 21.9 cm2 RA long axis: 5.0 cm LA A4 area: 20.9 cm2 RA area: 17.8 cm2 LA length (vol): 5.8 cm RA vol: 53.3 ml LA vol: 67.1 ml RA : 21.6 ml/m2 LA vol index: 27.2 ml/m2 IVC diam: 1.4 cm RVD1 (basal): 4.0 cm TAPSE: 2.7 cm Doppler Measurements & Calculations Ao V2 max: 135.3 cm/sec LVOT Max Larry: 90.4 cm/sec Ao V2 mean: 104.1 cm/sec LV V1 max P.3 mmHg Ao max P.3 mmHg LV V1 VTI: 16.7 cm Ao mean P.7 mmHg BREA(I,D): 3.3 cm2 Ao V2 VTI: 27.3 cm BREA(V,D): 3.6 cm2 sev ratio: 0.61 BREA indexed to BSA (cm^2/m^2): 1.3 MV E max larry: 76.1 cm/sec TR max larry: 251.5 cm/sec MV A max larry: 64.1 cm/sec TR max P.3 mmHg MV E/A: 1.2 PA V2 max: 80.3 cm/sec Med Peak E' Larry: 8.0 cm/sec PA V2 mean: 57.1 cm/sec E/E' med: 9.6 PA mean P.4 mmHg Lat Peak E' Larry: 11.1 cm/sec PA pr(Accel): 29.3 mmHg E/E' lat: 6.9 E/e' average: 8.2 MV dec time: 0.22 sec Pulm A Revs Larry: 31.3 cm/sec SV(LVOT): 89.0 ml Pulm A Revs Dur: 0.10 sec Electronically signed by: Hola Vinson on Reading Physician:03/13/2023 03:46 PM
== END ==
PROVIDERS: PCP Family Medicine; Referring Provider Family Medicine; Visit Provider Family Medicine
DX: I63.9 Cerebral infarction, unspecified (principal); I83.90 Asymptomatic varicose veins of unspecified lower extremity; I82.90 Acute embolism and thrombosis of unspecified vein
CPT/HCPCS: 93306

== ENCOUNTER → 2025-01-13 13:14 | Outpatient (CLI) | payer OTHER, SELFPAY ==
[2025-01-14 08:36] LABS: CRP, High Sensitivity 9.84 mg/L (0.00-3.00)
== END ==
PROVIDERS: PCP Family Medicine; Referring Provider Physician Assistant; Visit Provider Physician Assistant
DX: I63.9 Cerebral infarction, unspecified (principal)
CPT/HCPCS: 36415; 81240; 81241; 85240; 85300; 85598; 85613; 86140

== ENCOUNTER → 2025-05-20 09:11 | Outpatient (CLI) | payer OTHER, SELFPAY ==
[2025-05-22 13:36] LABS: Dilute Russell Viper Venom 42.3 sec (0.0-47.0); PTT-LA 35.0 sec (0.0-43.5)
[2025-05-23 08:40] LABS: Phospholipids, Serum 268 mg/dL (127-261)
[2025-05-23 17:39] LABS: Beta-2 Glycoprotein I Ab IgM <9 (0-32)
== END ==
PROVIDERS: PCP Family Medicine; Referring Provider Registered Nurse; Visit Provider Registered Nurse
DX: I63.9 Cerebral infarction, unspecified (principal)
CPT/HCPCS: 36415; 84311; 85598; 85613; 86146

== ENCOUNTER → 2025-06-10 08:55 | Outpatient (CLI) | payer OTHER, SELFPAY ==
[2025-06-13 16:36] LABS: Cardiolipin Ab IgG <9 GPL U/mL (0-14); Cardiolipin Ab IgM <9 MPL U/mL (0-12)
== END ==
LOC: LAB 08:58
PROVIDERS: PCP Family Medicine; Referring Provider Physician Assistant Medical; Visit Provider Physician Assistant Medical
DX: I63.9 Cerebral infarction, unspecified (principal)
CPT/HCPCS: 36415